=== PATIENT | male | born 1995 | race Caucasian/White ===

== ENCOUNTER 2020-04-30 22:27 | Emergency (ER) | payer SELFPAY ==
[~2020-04-30] VITALS: Ht 167.6 cm; Wt 57.2 kg
[2020-04-30] MEDS ORDERED: ACETAMINOPHEN 325 MG TAB PO ONE (22:45)
--- NOTE | 2020-04-30 22:55 | Emergency Department Note ---
History of Present Illnes History of Present Illness Chief Complaint: COVID PUI History of Present Illness This is a 24 year old male PRESENTS TO THE ER C/O FEVER/CHILLS, BODY ACHES AND HEADACHE X1 WEEK; PT STATES HE WAS POSSIBLY EXPOSED TO SOMEONE WITH SOMEONE WITH COVID-19; PT STATES THE PERSON WAS TESTED NEGATIVE; PT DENIES CP OR SOB; LAST DOSE OF TYLENOL YESTERDAY; . ALSO REPORTS LOSS OF TASTE AND SMELL. Historian: Patient Arrival Mode: Car Onset (how long ago): day(s) (7) Location: ALL OVER Quality: FEVER, CHILLS, BODY ACHES, LOSS OF TASTE Radiation: Reports non-radiation Severity: mild Onset quality: gradual Duration (how long): day(s) (7) Timing of current episode: constant Progression: waxing and waning Context: Reports recent illness, Reports other (POSSIBLE EXPOSURE TO FRIEND WITH COVID 19) Relieving factors: none Exacerbating factors: none Associated symptoms: Reports denies other symptoms Treatments prior to arrival: none Past Medical/Family History Physician Review I have reviewed the patient's past medical and family history. Any updates have been documented here. Past Medical History Recent Fever: Yes Clinical Suspicion of Infectio: Yes New/Unexplained Change in Ment: No Other Medical History: "HOLE IN COLON" BROKEN BACK Other Surgery: BACK SX COLON SX Social History Smoking Cessation: Never Smoker Alcohol Use: None Any Illegal Drug Use: No Family History Family history of heart diseas: No Review of Systems Review of Systems Constitutional: Reports as per HPI EENTM: Reports no symptoms Cardiovascular: Reports no symptoms Respiratory: Reports no symptoms Gastrointestinal: Reports no symptoms Genitourinary: Reports no symptoms Musculoskeletal: Reports no symptoms Integumentary: Reports no symptoms Neurological: Reports no symptoms Psychological: Reports no symptoms Endocrine: Reports no symptoms Hematological/Lymphatic: Reports no symptoms Physical Exam Related Data Allergies: Coded Allergies: No Known Allergies (Unverified , 04/30/20) Triage Vital Signs Vital Signs Date Time Temp Pulse Resp B/P (MAP) Pulse Ox O2 Delivery O2 Flow Rate FiO2 04/30/20 22:44 100.6 103 20 128/84 100 Room Air Vital signs reviewed: Yes Physical Exam CONSTITUTIONAL Constitutional: Present well-developed, Present well-nourished HENT HENT: Present normocephalic, Present atraumatic, Present oropharynx clear/moist, Present nose normal HENT L/R: Present left ext ear normal, Present right ext ear normal EYES Eyes: Reports PERRL, Reports conjunctivae normal NECK Neck: Present ROM normal PULMONARY Pulmonary: Present effort normal, Present rhonchi (SLIGHT BASE BILATERAL) CARDIOVASCULAR Cardiovascular: Present regular rhythm, Present heart sounds normal, Present capillary refill normal, Present normal rate, Present tachycardia (103) GASTROINTESTINAL Abdominal: Present soft, Present nontender, Present bowel sounds normal GENITOURINARY Genitourinary: Present exam deferred SKIN Skin: Present warm, Present dry MUSCULOSKELETAL Musculoskeletal: Present ROM normal NEUROLOGICAL Neurological: Present alert, Present oriented x 3, Present no gross motor or sensory deficits PSYCHOLOGICAL Psychological: Present mood/affect normal, Present judgement normal Assessment & Plan Medical Decision Making MDM PT WITH COVID 19 SYMPTOMS TYLENOL 975 MG PO ORDERED PT DISCHARGED WITH [facility] AND INFORMATION TO GET A COVID TEST THROUGH [facility]. Reassessment Reassessment time: 01:29 Reassessment TEMP NOW 98.8. PT STABLE, NO RESPIRATORY DISTRESS, OXYGEN SATURATION 99% ON ROOM AIR Assessment & Plan Final Impression: (1) COVID-19 Depart Disposition: HOME, SELF-CARE Last Vital Signs Date Time Temp Pulse Resp B/P (MAP) Pulse Ox O2 Delivery O2 Flow Rate FiO2 04/30/20 22:44 100.6 103 20 128/84 100 Room Air Medications in the ED Acetaminophen 975 mg ONCE ONCE PO ; Start 04/30/20 at 22:45; Stop 04/30/20 at 22:46; Status UNV RAJ COREY MD Apr 30, 2020 22:55
[2020-04-30] MEDS ORDERED: ACETAMINOPHEN 325 MG TAB ONE (22:58)
[2020-05-01] MEDS ORDERED: IBUPROFEN 600 MG TAB PO STA (00:03)
[2020-05-01] MEDS ORDERED: GUAIFENESIN 600 MG TAB ONE (00:10)
== END 2020-05-01 01:38 | disposition home or self-care (01) ==
LOC: ER 22:50
DX: U07.1 COVID-19 (principal); R50.9 Fever, unspecified; R51 Headache
CPT/HCPCS: 99283